=== PATIENT | male | born 1965 | race Caucasian/White ===

== ENCOUNTER → 2016-04-06 | Outpatient (CLI) | payer OTHER | LOC: M SMT 08:03 | PROVIDERS: ATTEND Urology | DX: E29.1 Testicular hypofunction (principal) ==

== ENCOUNTER → 2016-08-07 | Outpatient (CLI) | payer OTHER | LOC: M SMT 08:15 | PROVIDERS: ATTEND Urology | DX: E29.1 Testicular hypofunction (principal) ==

== ENCOUNTER 2016-09-04 07:31 | Emergency (ER) | payer OTHER ==
[~2016-09-04] VITALS: Ht 188 cm; Wt 93.1 kg
[2016-09-04] MEDS ORDERED: TESTOPEL (07:42)
--- NOTE | 2016-09-04 08:54 | REP ---
Right rib series: Five views including PA chest. History: Anterior trauma. Question rib fracture. Findings: PA chest radiograph demonstrates slight blunting of the right lateral pleural angle and minimal plate-like atelectasis in the right base laterally. There is no evidence of pneumothorax. The left lung is clear. Mediastinum is not widened. Heart size is normal. There are degenerative changes in the thoracic spine. Multiple views of the right ribcage show no visible rib fracture or incidental bony lesion. Impression: Slight blunting of the right lateral pleural angle and mild plate-like atelectasis in the right base laterally. No rib fracture seen. Otherwise negative. Signed by Pavan Nicole MD 09/04/2016 04:21 P
[2016-09-04] MEDS ORDERED: ISOVUE-370 76% 100ML VIAL (Q9967) As Ordered ONE (09:37)
[2016-09-04 09:40] LABS: BASO # 0.1 K/mm3 (0.0-0.2); EOS # 0.1 K/mm3 (0.0-0.50); EOS % 1.5 % (0.0-3.0); LARGE UNSTAINED CELL # 0.2 K/mm3 (0.0-0.4); LARGE UNSTAINED CELL % 2.7 % (0.0-4.0); LYMPH # 1.1 K/mm3 (1.5-4.5); LYMPH % 15.3 % (24.0-44.0); MEAN CORPUSCULAR HEMOGLOBIN 29.9 pg (27.0-33.0); MEAN CORPUSCULAR HGB CONC 32.7 g/dl (32.0-36.5); MEAN CORPUSCULAR VOLUME 91.3 fl (80.0-96.0); MONO # 0.4 K/mm3 (0.0-0.8); MONO % 5.8 % (0.0-5.0); NEUTROPHILS # 4.5 K/mm3 (1.8-7.7); NEUTROPHILS % 73.8 % (36.0-66.0); PLATELET COUNT, AUTOMATED 239 k/mm3 (150-450); RED CELL DISTRIBUTION WIDTH 13.7 % (11.5-14.5); WHITE BLOOD COUNT 6.1 K/mm3 (4.0-10.0)
[2016-09-04 09:52] LABS: ANION GAP 6 MEQ/L (8-16); BLOOD UREA NITROGEN 13 MG/DL (7-18); CALCIUM LEVEL 9.3 MG/DL (8.5-10.1); CARBON DIOXIDE LEVEL 32 MEQ/L (21-32); CHLORIDE LEVEL 100 MEQ/L (98-107); CREATININE FOR GFR 1.25 MG/DL (0.70-1.30); GLOMERULAR FILTRATION RATE > 60.0 (>56); GLUCOSE, FASTING 89 MG/DL (70-105); POTASSIUM SERUM 4.7 MEQ/L (3.5-5.1); SODIUM LEVEL 138 MEQ/L (136-145)
--- NOTE | 2016-09-04 10:45 | REP ---
CT of the chest without IV contrast: There is no pneumothorax or hemothorax. There is a tiny right pleural fluid collection. Minimal atelectasis in the deep sulcus of the right lung posteriorly. There is a nondisplaced fracture of the right sixth rib anteriorly. There is no mediastinal hematoma. Thoracic aorta is unremarkable. Cardiac size is normal. There is no clavicle, scapula, vertebral or sternal fracture. Impression: Nondisplaced fracture of the right sixth rib anteriorly. Tiny right pleural fluid collection in the deep posterior sulcus and minimal atelectasis in the deep posterior sulcus on the right. Signed by Danie Delatorre MD 09/04/2016 10:36 A
[2016-09-04] MEDS ORDERED: NORCOTAB PO (10:46)
[2016-09-04] MEDS ORDERED: IBUP-1022 PO (10:46)
[2016-09-04 11:02] VITALS: BP 170/110
== END 2016-09-04 11:04 | disposition home or self-care (01) ==
LOC: M ED 07:31
DX: S22.31XA Fracture of one rib, right side, initial encounter for closed fracture (principal); W50.0XXA Accidental hit or strike by another person, initial encounter; Y93.75 Activity, martial arts; Y92.139 Unspecified place military base as the place of occurrence of the external cause; Y99.1 Military activity
CPT/HCPCS: 36415; 71101; 71260; 80048; 85025; 99284; Q9967